=== PATIENT | female | born 1995 | race African-American/Black ===

== ENCOUNTER 2017-03-02 13:48 | Inpatient (IN) ==
[2017-03-02 16:43] LABS: Apearance,Urine CLEAR (Clear); Bacteria,Urine Occasional /HPF (Few); Bilirubin,Urine Negative (Negative); Blood, Urine Negative (Negative); Glucose,Urine (UA) Negative (Negative); Ketones,Urine Negative (Negative); Mucus,Urine Occasional /LPF (Occasional); Nitrite,Urine Negative (Negative); Protein,Urine Negative; Squamous Epithelial Cell,Urine Occasional /HPF (0-10); Urine Color Straw (Yellow); Urine Specific Gravity 1.004 (1.001-1.035); Urine Urobilinogen < 2.0 EU/DL (0.2-1.0); WBC,Urine 1 /HPF (0-6)
[2017-03-02] MEDS ORDERED: ONDANSETRON 4 MG/2 ML VIAL IV PRN (17:09)
[2017-03-02] MEDS ORDERED: LACTATED RINGERS 500 ML IV PRN (17:09)
[2017-03-02] MEDS ORDERED: PENICILLIN POTASSIUM IV ONE ×2 (17:11→17:47)
[2017-03-02] MEDS ORDERED: SODIUM CHLORIDE 0.9% IV ONE ×2 (17:11→17:47)
[2017-03-02] MEDS ORDERED: hydrOXYzine HCL 25 MG/1 ML VIAL IM PRN (17:13)
[2017-03-02] MEDS ORDERED: CITRIC ACID/SODIUM CITRATE 30 ML UDCUP PO ONE (17:13)
[2017-03-02] MEDS ORDERED: diphenhydrAMINE 50 MG/1 ML VIAL IV PRN ×2 (17:13)
[2017-03-02] MEDS ORDERED: FAMOTIDINE 20 MG/2 ML VIAL IV ONE (17:13)
[2017-03-02] MEDS ORDERED: PROMETHAZINE 25 MG/1 ML VIAL IM ONE (17:13)
[2017-03-02] MEDS ORDERED: LACTATED RINGERS 1,000 ML IV ONE (17:13)
[2017-03-02] MEDS ORDERED: ePHEDrine 50 MG/ML AMP IV PRN (17:13)
[2017-03-02] MEDS ORDERED: fentaNYL 2 MCG/ROPIV 0.2% EPID 150 ML EPIDURAL SCH (17:13)
[2017-03-02 17:34] LABS: Basophils % 0.2 % (0.0-0.8); Eosinophils % 0.2 % (0.00-10.9); Hematocrit 37.7 VOL% (35.7-47.0); Hemoglobin 12.3 GM/DL (12.0-16.0); Immature Granulocytes % 0.8 %; Lymphocytes # 1.5 10*3/uL (1.4-4.0); Mean Corpuscular HGB Conc 32.6 GM/DL (32-36); Mean Corpuscular Hemoglobin 28 PG (27-34); Mean Corpuscular Volume 86.3 FL (87-102); Mean Platelet Volume 10.2 FL (9.6-12.0); Monocytes # 0.8 10*3/uL (0.11-0.8); Monocytes % 6.6 % (1.7-12.7); Neutrophils # 9.8 10*3/uL (1.4-7.4); Neutrophils % 80.2 % (38.7-73.9); Platelet Count 246 T/CUMM (130-400); Red Blood Count 4.37 MC/CUMM (3.8-5.5); Red Cell Distribution Width 14.7 % (9.3-17.3); White Blood Count 12.3 T/CUMM (4-12)
[2017-03-02 17:54] LABS: Albumin 3.1 G/DL (3.4-5.0); Calcium 9.2 MG/DL (8.5-10.1); Osmolality,Calculated 270.7 MOS/KG (273-304); Potassium 3.7 MMOL/L (3.5-5.1); Total Protein 6.8 G/DL (6.4-8.3)
[2017-03-02] MEDS: OXYTOCIN/LR 20 UNIT/1,000 ML BAG IV SCH (17:55)
[2017-03-02] MEDS: LACTATED RINGERS 1,000 ML IV SCH (18:22)
[2017-03-02 18:24] LABS: Rubella Antibody IgG 64.8 IU/ML
[2017-03-02 18:45] LABS: HIV Antigen/Antibody Result Nonreactive (Nonreactive); Hepatitis B Surface Ag Quant 0.23 Index; Hepatitis B Surface Ag Result Negative (Negative)
[2017-03-02 19:39] LABS: Apearance,Urine CLEAR (Clear); Bilirubin,Urine Negative (Negative); Blood, Urine Negative (Negative); Glucose,Urine (UA) Negative (Negative); Ketones,Urine 20 mg/dL (Negative); Mucus,Urine Occasional /LPF (Occasional); Nitrite,Urine Negative (Negative); Protein,Urine Negative; Squamous Epithelial Cell,Urine Occasional /HPF (0-10); Urine Color Straw (Yellow); Urine Specific Gravity 1.003 (1.001-1.035); Urine Urobilinogen < 2.0 EU/DL (0.2-1.0)
[2017-03-02] MEDS ORDERED: PENICILLIN G POTASSIUM INJ 6,000,000 UNIT in SODIUM CHLORIDE 0.9% 100 ML IV ONE (20:00)
[2017-03-02] MEDS ORDERED: ceFAZolin 2,000 MG in PREMIX 1 EACH IV ONE (20:20)
[2017-03-02] MEDS ORDERED: PENICILLIN G POTASSIUM INJ 2,500,000 UNIT in SODIUM CHLORIDE 0.9% 100 ML IV SCH ×2 (21:30→23:30)
[2017-03-02 21:33] LABS: Cord Venous Blood HCO3 24.1 MMOL/L; Cord Venous Blood PCO2 42.8 MMHG; Cord Venous Blood PO2 32.1
[2017-03-02 21:39] LABS: Cord Arterial Blood HCO3 21.7 MMOL/L
[2017-03-02] MEDS ORDERED: TISSUE ADHESIVE 1 EACH APPLICATOR TOP ONE (21:42)
[2017-03-02] MEDS ORDERED: MAGNESIUM HYDROXIDE SUSP 30 ML UDCUP PO PRN (22:02)
[2017-03-02] MEDS ORDERED: MIDAZOLAM 2 MG/2 ML VIAL ONE (22:02)
[2017-03-02] MEDS ORDERED: RHO(D) IMMUNE GLOBULIN 300 MCG SYRINGE IM ONE (22:02)
[2017-03-02] MEDS ORDERED: OXYTOCIN/LR 20 UNIT/1,000 ML BAG IV ONE (22:02)
[2017-03-02] MEDS ORDERED: ACETAMINOPHEN 325 MG TABLET PO PRN (22:02)
[2017-03-02] MEDS ORDERED: MORPHINE 10 MG/10 ML VIAL ONE (22:03)
[2017-03-03] MEDS: LACTATED RINGERS 1,000 ML IV SCH ×3 (01:58→03:21)
[2017-03-03] MEDS: IBUPROFEN 800 MG TABLET PO PRN ×2 (02:14→14:39)
[2017-03-03 06:19] LABS: Basophils % 0.1 % (0.0-0.8); Eosinophils % 0.1 % (0.00-10.9); Hematocrit 26.1 VOL% (35.7-47.0); Hemoglobin 8.7 GM/DL (12.0-16.0); Immature Granulocytes % 0.7 %; Immature Granulocytes Absolute 0.09 #; Lymphocytes # 1.6 10*3/uL (1.4-4.0); Lymphocytes % 11.6 % (21.3-54.2); Mean Corpuscular HGB Conc 33.3 GM/DL (32-36); Mean Corpuscular Hemoglobin 28 PG (27-34); Mean Corpuscular Volume 85.3 FL (87-102); Mean Platelet Volume 10.1 FL (9.6-12.0); Monocytes # 0.8 10*3/uL (0.11-0.8); Monocytes % 6.2 % (1.7-12.7); Neutrophils # 10.9 10*3/uL (1.4-7.4); Neutrophils % 81.3 % (38.7-73.9); Platelet Count 175 T/CUMM (130-400); Red Blood Count 3.06 MC/CUMM (3.8-5.5); Red Cell Distribution Width 15.1 % (9.3-17.3); White Blood Count 13.4 T/CUMM (4-12)
[2017-03-03] MEDS: ONDANSETRON 4 MG/2 ML VIAL IV PRN ×2 (07:38→13:53)
[2017-03-03] MEDS: DOCUSATE SODIUM 100 MG CAPSULE PO SCH ×2 (14:36→21:14)
[2017-03-03] MEDS: MULTIVITAMIN (PRENATAL) TABLET PO SCH (14:38)
[2017-03-03] MEDS: SIMETHICONE CHEW 80 MG TABLET PO PRN (14:38)
[2017-03-03] MEDS ORDERED: oxyCODONE/ACETAMINOPHEN 5-325 MG TABLET PO PRN (17:24)
[2017-03-03] MEDS ORDERED: diphenhydrAMINE CAP 25 MG CAPSULE PO PRN (21:14)
[2017-03-03] MEDS: FERROUS SULFATE 325 MG TABLET PO SCH (21:14)
[2017-03-04] MEDS: IBUPROFEN 800 MG TABLET PO PRN ×2 (05:25→17:07)
[2017-03-04 05:57] LABS: Basophils % 0.1 % (0.0-0.8); Eosinophils % 0.2 % (0.00-10.9); Hematocrit 29.4 VOL% (35.7-47.0); Hemoglobin 9.4 GM/DL (12.0-16.0); Immature Granulocytes % 0.7 %; Immature Granulocytes Absolute 0.11 #; Lymphocytes # 1.7 10*3/uL (1.4-4.0); Lymphocytes % 10.4 % (21.3-54.2); Mean Corpuscular Hemoglobin 28 PG (27-34); Mean Corpuscular Volume 88.3 FL (87-102); Monocytes # 1.1 10*3/uL (0.11-0.8); Monocytes % 6.7 % (1.7-12.7); Neutrophils # 13.5 10*3/uL (1.4-7.4); Neutrophils % 81.9 % (38.7-73.9); Platelet Count 228 T/CUMM (130-400); Red Blood Count 3.33 MC/CUMM (3.8-5.5); Red Cell Distribution Width 15.2 % (9.3-17.3); White Blood Count 16.5 T/CUMM (4-12)
[2017-03-04] MEDS: oxyCODONE/ACETAMINOPHEN 5-325 MG TABLET PO PRN ×4 (06:08→23:15)
[2017-03-04] MEDS: DOCUSATE SODIUM 100 MG CAPSULE PO SCH ×2 (08:33→20:54)
[2017-03-04] MEDS: BISACODYL 5 MG TABLET PO PRN ×2 (08:33→17:07)
[2017-03-04] MEDS: FERROUS SULFATE 325 MG TABLET PO SCH ×2 (08:33→20:54)
[2017-03-04] MEDS: MULTIVITAMIN (PRENATAL) TABLET PO SCH (08:33)
[2017-03-04] MEDS: SIMETHICONE CHEW 80 MG TABLET PO PRN (08:35)
[2017-03-04] MEDS: OXYTOCIN/LR 20 UNIT/1,000 ML BAG IV SCH (21:36)
[2017-03-05] MEDS: oxyCODONE/ACETAMINOPHEN 5-325 MG TABLET PO PRN ×2 (06:33→13:49)
[2017-03-05 07:57] VITALS: BP 97/63
[2017-03-05] MEDS: IBUPROFEN 800 MG TABLET PO PRN (09:00)
[2017-03-05] MEDS: BISACODYL 5 MG TABLET PO PRN (09:00)
[2017-03-05] MEDS: MULTIVITAMIN (PRENATAL) TABLET PO SCH (09:00)
[2017-03-05] MEDS: DOCUSATE SODIUM 100 MG CAPSULE PO SCH (09:00)
[2017-03-05] MEDS: FERROUS SULFATE 325 MG TABLET PO SCH (09:00)
[2017-03-05] MEDS: SIMETHICONE CHEW 80 MG TABLET PO PRN (09:00)
[2017-03-05] MEDS ORDERED: BISACODYL 10 MG SUPP RECTAL PRN (09:05)
== END 2017-03-05 14:40 | disposition home or self-care (01) | DRG 766 ==
LOC: N.LDOUT 13:48 → N.LD 13:50 → N.OB 03-03 15:02
PROVIDERS: ADMIT Obstetrics & Gynecology; ATTEND Obstetrics & Gynecology
PROC: LDCSECT (ICD-10-PCS; 2017-03-02 20:20)

== ENCOUNTER 2018-01-12 10:53 | Inpatient (IN) ==
[2018-01-12 11:44] LABS: Apearance,Urine Slightly Hazy (Clear); Bilirubin,Urine Negative (Negative); Blood, Urine Negative (Negative); Glucose,Urine (UA) Negative (Negative); Ketones,Urine Negative (Negative); Mucus,Urine Occasional /LPF (Occasional); Nitrite,Urine Negative (Negative); Protein,Urine Negative; RBC,Urine 2 /HPF (0-4); Squamous Epithelial Cell,Urine Moderate /HPF (0-10); Urine Color Yellow (Yellow); Urine Specific Gravity 1.014 (1.001-1.035); Urine Urobilinogen < 2.0 EU/DL (0.2-1.0); WBC,Urine 22 /HPF (0-6)
[2018-01-12] MEDS ORDERED: CITRIC ACID/SODIUM CITRATE 30 ML UDCUP PO ONE (11:50)
[2018-01-12] MEDS ORDERED: ceFAZolin 2,000 MG in PREMIX 1 EACH IV ONE (11:50)
[2018-01-12] MEDS ORDERED: OXYTOCIN/LR 20 UNIT/1,000 ML BAG IV ONE ×2 (11:54→14:58)
[2018-01-12] MEDS ORDERED: LACTATED RINGERS 1,000 ML IV SCH ×2 (12:00→15:00)
[2018-01-12] MEDS ORDERED: LACTATED RINGERS 1,000 ML IV ONE (12:05)
[2018-01-12] MEDS ORDERED: hydrOXYzine HCL 25 MG/1 ML VIAL IM PRN (12:05)
[2018-01-12] MEDS ORDERED: FAMOTIDINE 20 MG/2 ML VIAL IV ONE (12:05)
[2018-01-12] MEDS ORDERED: diphenhydrAMINE 50 MG/1 ML VIAL IV PRN (12:05)
[2018-01-12] MEDS ORDERED: PROMETHAZINE 25 MG/1 ML VIAL IM PRN (12:05)
[2018-01-12 12:15] LABS: Basophils % 0.2 % (0.0-0.8); Eosinophils % 0.2 % (0.00-10.9); Hematocrit 31.3 VOL% (35.7-47.0); Lymphocytes # 1.6 10*3/uL (1.4-4.0); Lymphocytes % 15.1 % (21.3-54.2); Mean Corpuscular HGB Conc 31.9 GM/DL (32-36); Mean Corpuscular Hemoglobin 27 PG (27-34); Mean Corpuscular Volume 83.5 FL (87-102); Monocytes # 0.8 10*3/uL (0.11-0.8); Monocytes % 7.4 % (1.7-12.7); Neutrophils # 7.9 10*3/uL (1.4-7.4); Neutrophils % 76.1 % (38.7-73.9); Platelet Count 232 T/CUMM (130-400); Red Blood Count 3.75 MC/CUMM (3.8-5.5); Red Cell Distribution Width 14.1 % (9.3-17.3); White Blood Count 10.4 T/CUMM (4-12)
[2018-01-12] MEDS ORDERED: TERBUTALINE 1 MG/1 ML VIAL SUBCUT ONE (12:34)
[2018-01-12 12:39] LABS: Albumin 2.7 G/DL (3.4-5.0); Calcium 8.8 MG/DL (8.5-10.1); Osmolality,Calculated 273.4 MOS/KG (273-304); Potassium 3.6 MMOL/L (3.5-5.1); Total Protein 6.5 G/DL (6.4-8.3)
[2018-01-12 13:19] LABS: HIV Antigen/Antibody Result Nonreactive (Nonreactive); Hepatitis B Surface Ag Quant < 0.10 Index; Hepatitis B Surface Ag Result Negative (Negative)
[2018-01-12] MEDS ORDERED: BUPIVACAINE SPINAL 0.75% 2 ML AMP SPINAL ONE (14:11)
[2018-01-12] MEDS ORDERED: SIMETHICONE CHEW 80 MG TABLET PO PRN (14:58)
[2018-01-12] MEDS ORDERED: ACETAMINOPHEN 325 MG TABLET PO PRN (14:58)
[2018-01-12] MEDS ORDERED: RHO(D) IMMUNE GLOBULIN 300 MCG SYRINGE IM ONE (14:58)
[2018-01-12] MEDS ORDERED: IBUPROFEN 800 MG TABLET PO PRN (14:58)
[2018-01-12] MEDS ORDERED: ONDANSETRON 4 MG/2 ML VIAL IV PRN (14:58)
[2018-01-12] MEDS ORDERED: PHENYLEPHRINE 1 MG/10 ML SYRINGE IV ONE (15:12)
[2018-01-12] MEDS ORDERED: MORPHINE 10 MG/10 ML VIAL ONE (15:13)
[2018-01-12] MEDS ORDERED: MIDAZOLAM 2 MG/2 ML VIAL ONE (15:13)
[2018-01-12 15:49] LABS: Apearance,Urine CLEAR (Clear); Bacteria,Urine Occasional /HPF (Few); Bilirubin,Urine Negative (Negative); Blood, Urine Small mg/dL (Negative); Glucose,Urine (UA) Negative (Negative); Ketones,Urine 80 mg/dL (Negative); Mucus,Urine Occasional /LPF (Occasional); Nitrite,Urine Negative (Negative); Protein,Urine Negative; RBC,Urine 4 /HPF (0-4); Squamous Epithelial Cell,Urine Occasional /HPF (0-10); Urine Color Yellow (Yellow); Urine Specific Gravity 1.011 (1.001-1.035); WBC,Urine 1 /HPF (0-6)
[2018-01-12] MEDS ORDERED: NALOXONE 0.4 MG/ML VIAL IV PRN (16:22)
[2018-01-12] MEDS ORDERED: MORPHINE PCA 30 MG/30 ML SYRINGE IV SCH (16:30)
[2018-01-12] MEDS ORDERED: KETOROLAC 30 MG/1 ML VIAL IM ONE (16:30)
[2018-01-12] MEDS: ACETAMINOPHEN 500 MG TABLET PO SCH ×2 (16:47→22:20)
[2018-01-12] MEDS: ceFAZolin 1,000 MG in SYRINGE 1 EACH IV SCH (22:19)
[2018-01-12] MEDS: DOCUSATE SODIUM 100 MG CAPSULE PO SCH (22:22)
[2018-01-12] MEDS ORDERED: KETOROLAC 30 MG/1 ML VIAL IM PRN (22:45)
[2018-01-13 01:01] LABS: Basophils % 0.3 % (0.0-0.8); Eosinophils % 0.1 % (0.00-10.9); Hematocrit 28.7 VOL% (35.7-47.0); Hemoglobin 8.9 GM/DL (12.0-16.0); Immature Granulocytes % 0.8 %; Immature Granulocytes Absolute 0.11 #; Lymphocytes # 1.5 10*3/uL (1.4-4.0); Lymphocytes % 10.6 % (21.3-54.2); Mean Corpuscular Hemoglobin 26 PG (27-34); Mean Corpuscular Volume 84.9 FL (87-102); Mean Platelet Volume 10.6 FL (9.6-12.0); Monocytes # 0.8 10*3/uL (0.11-0.8); Neutrophils # 11.3 10*3/uL (1.4-7.4); Neutrophils % 82.2 % (38.7-73.9); Platelet Count 200 T/CUMM (130-400); Red Blood Count 3.38 MC/CUMM (3.8-5.5); Red Cell Distribution Width 14.1 % (9.3-17.3); White Blood Count 13.8 T/CUMM (4-12)
[2018-01-13] MEDS: ACETAMINOPHEN 500 MG TABLET PO SCH ×2 (04:46→10:24)
[2018-01-13 05:52] LABS: Basophils % 0.3 % (0.0-0.8); Eosinophils % 0.3 % (0.00-10.9); Hematocrit 26.5 VOL% (35.7-47.0); Hemoglobin 8.5 GM/DL (12.0-16.0); Immature Granulocytes % 0.7 %; Immature Granulocytes Absolute 0.08 #; Lymphocytes # 1.5 10*3/uL (1.4-4.0); Lymphocytes % 12.9 % (21.3-54.2); Mean Corpuscular HGB Conc 32.1 GM/DL (32-36); Mean Corpuscular Hemoglobin 27 PG (27-34); Mean Corpuscular Volume 83.9 FL (87-102); Mean Platelet Volume 10.7 FL (9.6-12.0); Monocytes # 0.8 10*3/uL (0.11-0.8); Monocytes % 7.1 % (1.7-12.7); NRBC # 0.02 10*3/uL; Neutrophils # 9.1 10*3/uL (1.4-7.4); Neutrophils % 78.7 % (38.7-73.9); Platelet Count 216 T/CUMM (130-400); Red Blood Count 3.16 MC/CUMM (3.8-5.5); White Blood Count 11.6 T/CUMM (4-12)
[2018-01-13] MEDS: ceFAZolin 1,000 MG in SYRINGE 1 EACH IV SCH (06:23)
[2018-01-13] MEDS: DOCUSATE SODIUM 100 MG CAPSULE PO SCH ×2 (07:52→20:59)
[2018-01-13] MEDS: MULTIVITAMIN (PRENATAL) TABLET PO SCH (08:38)
[2018-01-13] MEDS ORDERED: oxyCODONE/ACETAMINOPHEN 5-325 MG TABLET PO PRN (20:45)
[2018-01-13] MEDS: oxyCODONE/ACETAMINOPHEN 5-325 MG TABLET PO PRN (20:59)
[2018-01-13] MEDS: MAGNESIUM HYDROXIDE SUSP 30 ML UDCUP PO PRN (20:59)
[2018-01-13] MEDS ORDERED: diphenhydrAMINE CAP 25 MG CAPSULE PO PRN (23:49)
[2018-01-13] MEDS ORDERED: diphenhydrAMINE CAP 25 MG CAPSULE ONE (23:50)
[2018-01-14] MEDS: oxyCODONE/ACETAMINOPHEN 5-325 MG TABLET PO PRN ×3 (06:13→17:34)
[2018-01-14] MEDS: MAGNESIUM HYDROXIDE SUSP 30 ML UDCUP PO PRN (08:45)
[2018-01-14] MEDS: MULTIVITAMIN (PRENATAL) TABLET PO SCH (08:45)
[2018-01-14] MEDS: DOCUSATE SODIUM 100 MG CAPSULE PO SCH (08:46)
[2018-01-14 11:20] VITALS: BP 101/61
[2018-01-14] MEDS ORDERED: DIPH/TET/ACEL PERT BOOSTER VACCINE 0.5 ML VIAL IM ONE (13:46)
== END 2018-01-14 17:35 | disposition home or self-care (01) | DRG 765 ==
LOC: N.LDOUT 10:53 → N.LD 10:55 → N.OB 18:00
PROVIDERS: ADMIT Obstetrics & Gynecology; ATTEND Obstetrics & Gynecology
PROC: LDCSECT (ICD-10-PCS; 2018-01-12 14:15)